=== PATIENT | female | born 1980 | race Caucasian/White ===

== ENCOUNTER 2017-05-18 18:29 | Emergency (ER) | payer MEDICAID ==
[~2017-05-18] VITALS: Ht 162.6 cm; Wt 68.5 kg
[~2017-05-18 18:29] MED LIST: MECL25TA2 PO; ONDA4TAB35 PO; PREN-39 PO
[2017-05-18 18:37] VITALS: Ht 162.6 cm; Wt 68.5 kg
[2017-05-18 21:03] LABS: ADD UMIC YES; UR ASCORBIC ACID 40 mg/dL (NEGATIVE); UR BILIRUBIN (Dip) NEGATIVE (NEGATIVE); UR BLOOD (Dip) 1+ mg/dL (NEGATIVE); UR CLARITY CLOUDY (CLEAR); UR COLOR YELLOW (YELLOW); UR GLUCOSE (Dip) 3+ mg/dL (NEGATIVE); UR KETONES (Dip) TRACE mg/dL (NEGATIVE); UR LEUKOCYTE ESTERASE (Dip) 3+ Leu/ul (NEGATIVE); UR MUCUS FEW /HPF (NONE SEEN); UR NITRITE (Dip) NEGATIVE (NEGATIVE); UR RBC 37 /HPF (0-5); UR SQUAMOUS EPITHELIAL CELL FEW /HPF (FEW); UR TOTAL PROTEIN (Dip) NEGATIVE (NEGATIVE); UR UROBILINOGEN (Dip) NEGATIVE (NEGATIVE)
[2017-05-18] MEDS ORDERED: CEPH-443 PO (21:27)
[2017-05-18] MEDS ORDERED: PHEN-538 PO (21:28)
--- NOTE | 2017-05-18 21:33 | ERD ---
ER Documentation Chief Complaint Date/Time DATE: 05/18/17 TIME: 21:30 Chief Complaint painful urination x 3 days HPI This patient is a 36-year-old female with past medical history of diabetes presenting to the emergency department with complaints of dysuria for the past 3 days. Patient does have history of UTIs in the past. Associated symptoms include suprapubic pain with radiation of the back. Symptoms are constant and worsening. She denies fevers, chills, hematuria, or other symptoms currently. ROS All systems reviewed and are negative except as per history of present illness. Medications Home Meds Active Scripts Phenazopyridine Hcl* (Pyridium*) 200 Mg Tab, 200 MG PO TID Y for URINARY PAIN, # 6 TAB Prov:PÉREZ RUSS PA-C 05/18/17 Cephalexin* (Keflex*) 500 Mg Capsule, 500 MG PO TID for 7 Days, #21 CAP Prov:PÉREZ RUSS PA-C 05/18/17 Ondansetron Hcl* (Zofran* ODT) 4 mg -ODT Tab.disper, 4 MG PO Q6 Y for NAUSEA AND /OR VOMITING, #10 TAB Prov:SARANYA LADD NP 09/10/15 Meclizine Hcl* (Antivert*) 25 Mg Tablet, 25 MG PO Q8 Y for dizziness, #20 TAB Prov:SARANYA LADD NP 09/10/15 Reported Medications Vits W-Ca,Fe,Fa(<1MG) ( Vitamins) 1 Tab Tablet, 1 TAB PO DAILY 11/22/13 Allergies Allergies: Coded Allergies: No Known Allergies (Verified Allergy, Mild, 05/18/17) PMhx/Soc History of Surgery: Yes (NECK SURGERY) Anesthesia Reaction: No Hx Neurological Disorder: No Hx Respiratory Disorders: No Hx Cardiac Disorders: No Hx Psychiatric Problems: No Hx Miscellaneous Medical Probl: Yes (DM, UTI) Hx Alcohol Use: No Hx Substance Use: No Hx Tobacco Use: No Smoking Status: Never smoker Physical Exam Vitals Vital Signs Date Time Temp Pulse Resp B/P Pulse Ox O2 Delivery O2 Flow Rate FiO2 05/18/17 18:37 97.7 90 20 130/74 98 Physical Exam Const: Nontoxic, well-appearing female in no acute distress. Head: Atraumatic Eyes: Normal Conjunctiva ENT: Normal External Ears, Nose and Mouth. Neck: Full range of motion..~ No meningismus. Resp: Clear to auscultation bilaterally Cardio: Regular rate and rhythm, no murmurs Abd: Soft, non tender, non distended. Normal bowel sounds. Mild suprapubic tenderness bilaterally.No McBurney's point tenderness. Skin: No petechiae or rashes Back: No midline or flank tenderness. No CVA tenderness. Ext: No cyanosis, or edema Neur: Awake and alert Psych: Normal Mood and Affect Results 24 hrs Laboratory Tests Test 05/18/17 19:45 05/18/17 21:12 Urine Color YELLOW Urine Clarity CLOUDY Urine pH 6.0 Urine Specific [place] 1.030 Urine Ketones TRACEmg/dL Urine Nitrite NEGATIVEmg/dL Urine Bilirubin NEGATIVEmg/dL Urine Urobilinogen NEGATIVEmg/dL Urine Leukocyte Esterase 3+Linda/ul Urine Microscopic RBC 37/HPF Urine Microscopic WBC 8/HPF Urine Squamous Epithelial Cells FEW/HPF Urine Calcium Oxalate Crystals MANY/HPF Urine Mucus FEW/HPF Urine Hemoglobin 1+mg/dL Urine Glucose 3+mg/dL Urine Total Protein NEGATIVEmg/dl Bedside Glucose 240mg/dL Procedures/MDM 36-year-old female presenting to the emergency department with complaints of painful urination for the past 3 days. History and physical examination and urinalysis is consistent with an uncomplicated urinary tract infection. I have low suspicion for complicated pyelonephritis, ascending urinary tract infection , sepsis, or other emergent conditions. The patient is stable for outpatient management with prescription for Keflex. Because there was glucose noted in the urine I ordered an Accu-Chek which came back at 240. With this number, the patient is stable for discharge with follow-up with her primary care physician. She is to continue taking all of her diabetic prescribed medication. Strict ER return precautions were discussed. Close follow-up with the primary care physician was advised. Departure Diagnosis: Primary Impression: Urinary tract infection Urinary tract infection type: acute cystitis Hematuria presence: without hematuria Qualified Code: N30.00 - Acute cystitis without hematuria Condition: Fair Patient Instructions: Understanding Urinary Tract Infections (UTIs) Referrals: [facility] YOU HAVE RECEIVED A MEDICAL SCREENING EXAM AND THE RESULTS INDICATE THAT YOU DO NOT HAVE A CONDITION THAT REQUIRES URGENT TREATMENT IN THE EMERGENCY DEPARTMENT. FURTHER EVALUATION AND TREATMENT OF YOUR CONDITION CAN WAIT UNTIL YOU ARE SEEN IN YOUR DOCTORS OFFICE WITHIN THE NEXT 1-2 DAYS. IT IS YOUR RESPONSIBILITY TO MAKE AN APPOINTMENT FOR FOLOW-UP CARE. IF YOU HAVE A PRIMARY DOCTOR --you should call your primary doctor and schedule an appointment IF YOU DO NOT HAVE A PRIMARY DOCTOR YOU CAN CALL OUR PHYSICIAN REFERRAL HOTLINE AT IF YOU CAN NOT AFFORD TO SEE A PHYSICIAN YOU CAN CHOSE FROM THE FOLLOWING [facility] [address] [facility] [address] [facility] [facility] [address] [facility] [address] [facility] [address] [facility]. [facility]. [address] Additional Instructions: No mas mejor en 2-3 garcia, regresar. Mas peor en 24 horas, regresear rapidamente. Ir a doctor primario in 5-7 garcia. Usar instrucciones cuando esvin medicamento. PÉREZ RUSS PA-C May 18, 2017 21:33
[2017-05-18 21:34] VITALS: BP 122/74; PULSE 72; RESP 16; TEMP 98.1
== END 2017-05-18 21:36 | disposition home or self-care (01) ==
LOC: FTE 18:29
DX: N30.00 Acute cystitis without hematuria (principal); E11.9 Type 2 diabetes mellitus without complications
CPT/HCPCS: 81001; 82962; Z7502; 99283

== ENCOUNTER 2018-02-16 14:34 | Emergency (ER) | END 2018-02-16 16:14 | disposition home or self-care (01) ==

== ENCOUNTER 2018-05-22 10:04 | Emergency (ER) | END 2018-05-22 13:56 | disposition home or self-care (01) ==

== ENCOUNTER 2019-02-07 07:48 | Emergency (ER) | payer OTHER, MEDICAID ==
[~2019-02-07] VITALS: Ht 157.5 cm; Wt 69.1 kg
[~2019-02-07 07:48] MED LIST changes: +MECL12.574 PO; -MECL25TA2 PO; +METF-406 PO; +ONDA4TAB14 PO; -ONDA4TAB35 PO; -PREN-39 PO
[2019-02-07 07:53] VITALS: BP 135/73; PULSE 76; RESP 18; Ht 157.5 cm; Wt 69.1 kg
[2019-02-07] MEDS ORDERED: LORA1TAB PO (08:16)
[2019-02-07] MEDS ORDERED: ONDANSETRON (ODT) 4 MG TAB ODT STA (08:21)
[2019-02-07] MEDS ORDERED: LORAZEPAM 1 MG TAB PO ONE (08:30)
[2019-02-07] MEDS ORDERED: ONDA4TAB14 PO (08:54)
--- NOTE | 2019-02-07 08:57 | ERD ---
ER Documentation Chief Complaint Chief Complaint dizzy x3 hrs, vomitting BS 204 HPI Patient is a 38-year-old female with diabetes who presents with dizziness. She has had the symptoms for the past 3 hours. She feels like the room is spinning. It feels the same as her previous vertigo. She tried meclizine this morning but is still having dizziness. She denies pain and denies fevers. She does not remember the name of her primary doctor. Upon review of old medical record the patient has multiple visits for various complaints including vertigo in the past. ROS All systems reviewed and are negative except as per history of present illness. Medications Home Meds Active Scripts Ondansetron (Ondansetron Odt) 4 Mg Tab.rapdis, 4 MG PO Q6H PRN for NAUSEA AND/OR VOMITING, #10 TAB Prov:EB GUZMAN MD 02/07/19 Lorazepam* (Lorazepam*) 1 Mg Tablet, 1 MG PO Q8, #6 TAB Prov:EB GUZMAN MD 02/07/19 Ondansetron (Ondansetron Odt) 4 Mg Tab.rapdis, 4 MG PO Q6H PRN for NAUSEA AND/OR VOMITING, #20 TAB Prov:CHRISTINE BATRES MD 05/22/18 Meclizine Hcl* (Antivert*) 12.5 Mg Tab, 12.5 MG PO Q6H PRN for DIZZINESS, #20 TAB Prov:CHRISTINE BATRES MD 05/22/18 Reported Medications Metformin Hcl* (Metformin Hcl* ER) 1,000 Mg Tab.er.24, 1000 MG PO DAILY, #30 TAB 05/22/18 Allergies Allergies: Coded Allergies: No Known Allergies (Verified Allergy, Mild, 05/18/17) PMhx/Soc History of Surgery: Yes (NECK SURGERY, CSX3) Anesthesia Reaction: No Hx Neurological Disorder: No Hx Respiratory Disorders: No Hx Cardiac Disorders: No Hx Psychiatric Problems: No Hx Miscellaneous Medical Probl: Yes (DM, UTI,VERTIGO) Hx Alcohol Use: No Hx Substance Use: No Hx Tobacco Use: No Smoking Status: Never smoker FmHx Family History: diabetes Physical Exam Vitals Vital Signs Date Temp Pulse Resp B/P (MAP) Pulse Ox O2 O2 Flow FiO2 Time Delivery Rate 02/07/19 98.0 76 18 135/73 97 07:53 (93) Physical Exam Const: Moderate distress secondary to dizziness Head: Atraumatic Eyes: Normal Conjunctiva ENT: Normal External Ears, Nose and Mouth. Neck: Full range of motion. No meningismus. Resp: Clear to auscultation bilaterally Cardio: Regular rate and rhythm, no murmurs Abd: Soft, non tender, non distended. Normal bowel sounds Skin: No petechiae or rashes Back: No midline or flank tenderness Ext: No cyanosis, or edema Neur: Awake and alert, cranial nerves II through XII are intact, strength is 5 out of 5 in all 4 extremities, no slurred speech, no pronator drift Psych: Normal Mood and Affect Results 24 hrs Laboratory Tests Test 02/07/19 07:52 02/07/19 08:51 Bedside Glucose 204 mg/dL POC Beta HCG, Qualitative NEGATIVE Current Medications Medications Dose Sig/Filiberto Start Time Status Last (Trade) Ordered Route PRN Stop Time Admin Dose Reason Admin Lorazepam 1 mg ONCE ONCE 02/07/19 DC 02/07/19 (Ativan) PO 08:30 08:45 02/07/19 08:31 Ondansetron 4 mg ONCE STAT 02/07/19 DC 02/07/19 HCl (Zofran ODT 08:21 08:45 Odt) 02/07/19 08:22 Procedures/MDM EKG read by me: Rate/Rhythm: Regular rate and rhythm at a rate of 68 Intervals: Normal Impression: No evidence of ischemia or arrhythmia Accu-Chek is in the low 200s. Urine test is negative. Patient is a 38-year-old female who presents with dizziness. Her EKG is neg ative for ischemia. Accu-Chek is in the low 200s and I doubt diabetic ketoacidosis. Urine is negative I doubt or ectopic . I doubt stroke and the patient has a normal neurologic exam. I believe the risk of doing a CT scan of the brain outweigh the benefits. The patient can be discharged at this time with a prescription for Ativan and Zofran. She will need to follow-up closely with her primary doctor within 1 week. She can return sooner for any worsening symptoms. Departure Diagnosis: Primary Impression: Dizziness Additional Impression: Vertigo Condition: Fair Patient Instructions: Dizziness, Unk Cause, Vertigo, Unspecified Referrals: [facility] (PCP) Additional Instructions: Llame al doctor nombrado abajo (Referral Sources) MAANA y billy michael FRANCISCO PARA DENTRO DE MICHAEL SEMANA. Dgale a la secretaria que nosotros le instruimos hacer esta francisco.Avise o llame si [place] condicin se empeora antes de la francisco. EB GUZMAN MD Feb 07, 2019 08:57
== END 2019-02-07 09:19 | disposition home or self-care (01) ==
LOC: E/R 07:48
DX: R42 Dizziness and giddiness (principal); E11.9 Type 2 diabetes mellitus without complications; Z79.84 Long term (current) use of oral hypoglycemic drugs
CPT/HCPCS: 81025; 82962; 93005